=== PATIENT | male | born 1980 | race Two or more races ===

== ENCOUNTER 2018-10-10 15:56 | Emergency (ER) | payer BC ==
[~2018-10-10] VITALS: Ht 167.6 cm; Wt 83.0 kg
[2018-10-10 16:23] VITALS: BP 122/90; Ht 167.6 cm; Wt 83.0 kg
== END 2018-10-10 18:37 | disposition home or self-care (01) ==
LOC: ED 15:56
DX: S62.617A Displaced fracture of proximal phalanx of left little finger, initial encounter for closed fracture (principal); X58.XXXA Exposure to other specified factors, initial encounter; Y93.89 Activity, other specified; Y92.89 Other specified places as the place of occurrence of the external cause; Y99.8 Other external cause status
CPT/HCPCS: Q0092; Q0162

== ENCOUNTER 2019-12-03 04:40 | Emergency (ER) | payer BC ==
[~2019-12-03] VITALS: Ht 167.6 cm; Wt 83.9 kg
[2019-12-03 04:50] VITALS: Ht 167.6 cm; Wt 83.9 kg
[2019-12-03 05:15] LABS: BASOPHIL % 0.8 % (0-2); PLATELET COUNT 198 x10^3mcL (130-400); RED CELL DISTRIBUTION WIDTH 12.7 % (11.5-14.5)
[2019-12-03 05:27] LABS: CALCIUM 9.1 mg/dL (8.5-10.1); CARBON DIOXIDE 29.8 mmol/L (21-32); CHLORIDE SERUM 102 mmol/L (98-107); CREATININE SERUM 1.1 mg/dL (0.7-1.3); GFR1 > 60 mL/min; GLUCOSE SERUM 120 mg/dL (74-106); POTASSIUM SERUM 3.8 mmol/L (3.5-5.1); SODIUM SERUM 139 mmol/L (136-145)
[2019-12-03 05:31] LABS: ALKALINE PHOSPHATASE 49 U/L (46-116); ALT/SGPT 50 U/L (16-63); AST/SGOT 19 U/L (15-37); BILIRUBIN TOTAL 0.59 mg/dL (0.20-1.00); TOTAL PROTEIN, SERUM 7.3 g/dL (6.4-8.2)
[2019-12-03 09:34] VITALS: BP 132/91
== END 2019-12-03 09:34 | disposition home or self-care (01) ==
LOC: ED 04:40
PROVIDERS: Emergency Medicine
DX: R00.2 Palpitations (principal); R07.89 Other chest pain; R20.2 Paresthesia of skin
CPT/HCPCS: Q0092